=== PATIENT | female | born 1980 | race African-American/Black ===

== ENCOUNTER 2021-06-05 16:04 | Emergency (ER) | payer OTHER, SELFPAY ==
--- NOTE | ~2021-06-05 | XR_ITS ---
EXAMINATION: XR finger 4th LT min 2V INDICATION: Left fourth finger laceration TECHNIQUE: Three views of the left fourth finger are obtained. COMPARISON: None available FINDINGS: Bone alignment is normal. There is no fracture. No radiopaque foreign body is identified. T here is mild soft tissue swelling of the finger. IMPRESSION: 1. No acute osseous abnormality. Reviewed, dictated and finalized at location B.
[2021-06-05 16:26] VITALS: BP 124/66; PULSE 66; RESP 16; TEMP 36.8; O2SAT 100
--- NOTE | 2021-06-05 16:27 | ED.WOUNDLAC ---
HPI - Wound/Laceration General Chief Complaint: Wound/Laceration Stated Complaint: cut finger Time Seen by Provider: 06/05/21 16:27 Source: patient and family Mode of arrival: ambulatory Limitations: no limitations History of Present Illness HPI narrative: Patient is a 40-year-old female who presents for evaluation of puncture wound to left fourth digit pad. Patient states she was cutting meat with a knife when the knife slipped and punctured through her left fourth digit. Patient reports pain at the site as well as tingling. She reports difficulty with movement secondary to the pain. Patient was able to remove her rings from that finger. She is right-hand dominant. Related Data Allergies Allergy/AdvReac Type Severity Reaction Status Date / Time naproxen Allergy Mild HIVES, Verified 06/05/21 16:30 ITCHING latex Allergy Unknown Hives Verified 06/05/21 16:30 Wasp Allergy Unknown Difficulty Uncoded 06/05/21 16:30 Breathing Review of Systems Review of Systems: CONSTITUTIONAL: Denies fever CARDIOVASCULAR: Denies chest pain RESPIRATORY: Denies cough or dyspnea. GASTROINTESTINAL: Denies abdominal pain SKIN: Denies rash, reports small laceration to left fourth digit pad MUSCULOSKELETAL: Denies back pain NEUROLOGIC: Denies headache PMFSH Past Medical History Medical History Anxiety and depression COPD (chronic obstructive pulmonary disease) Tubal infertility in female Surgical History Surgical History Previous section Social History Social History Smoking status: Current every day smoker Exam Narrative: GENERAL: Awake, alert, conversant, tearful HEAD: Normocephalic, atraumatic. EYES: PERRLA and EOMI. ENT: Nares clear, no rhinorrhea or epistaxis. Mucous membranes moist. NECK: Supple. CHEST: No respiratory distress, breathing even and non labored HEART: Regular rate, sinus rhythm ABDOMEN:Non distended, non tender EXTREMITIES: Normal range of motion. No edema. SKIN: Warm, dry, no rash. Tender to palpation on the pad of the left fourth digit. There is ecchymosis there. No ungual hematoma. 0.25 cm superficial laceration, nongaping to the left fourth finger pad. Intact sensation median, ulnar, radial nerve distribution. Radial pulse 2+ NEURO:No focal deficits. Alert and oriented x3 Course Vital Signs Vital signs: Vital Signs Temperature 36.8 C 06/05/21 16:26 Pulse Rate 66 06/05/21 16:26 Respiratory Rate 16 06/05/21 16:26 Blood Pressure 124/66 06/05/21 16:26 Pulse Oximetry 100 06/05/21 16:26 Temperature 36.8 C 06/05/21 16:26 Pulse Rate 66 06/05/21 16:26 Respiratory Rate 16 06/05/21 16:26 Blood Pressure 124/66 06/05/21 16:26 Pulse Oximetry 100 06/05/21 16:26 Procedures Laceration Laceration 1: Date: 06/05/21 Time: 17:26 Site: hand Side (If applicable): left Size (cm): 0.25 Description: linear Depth: simple, single layer Local Anesthetic: none Pre-repair: wound explored and irrigated ====== Skin Level ====== Skin layer closed with: dermabond and steri strips ====== Subcutaneous Layer ====== ====== Muscle Layer ====== ====== Tendon Layer ====== MDM - Wound/Laceration MDM Narrative Medical decision making narrative: Patient presenting for evaluation of puncture wound to left fourth digit finger pad. She is neurovascularly intact. This is a very tiny puncture wound. Tetanus was updated. No acute osseous abnormality found on imaging. Dermabond and Steri-Strip applied. Patient was discharged home with wound care precautions. Differential Diagnosis Differential diagnosis: Likely laceration, abrasion and avulsion of skin Imaging Data Radiologist's impression: ITS Impressions Finger X-Ray 0
[2021-06-05] MEDS: oxyCODONE/ACETAMINOPHEN (*CRX) 5-325 MG TABLET 1 TABLET PO (17:01)
[2021-06-05 18:23] VITALS: BP 120/67; PULSE 68; RESP 18; O2SAT 100
== END 2021-06-05 17:50 | disposition home or self-care (01) ==
PROVIDERS: Emergency Provider Emergency Medicine
DX: S61.215A Laceration without foreign body of left ring finger without damage to nail, initial encounter (principal); J44.9 Chronic obstructive pulmonary disease, unspecified; F17.200 Nicotine dependence, unspecified, uncomplicated; W26.0XXA Contact with knife, initial encounter
CPT/HCPCS: 12001; 73140; 99283; A9270

== ENCOUNTER 2024-02-25 08:43 | Emergency (ER) | payer OTHER, SELFPAY ==
--- NOTE | ~2024-02-25 | XR_ITS ---
EXAMINATION: XR wrist RT min 3V DATE: 02/25/2024 09:13 INDICATION: Right wrist pain. Injury. TECHNIQUE: 4 views of right wrist were obtained. COMPARISON: None. FINDINGS: Bone alignment is normal. No fracture. Joint spaces are normal. IMPRESSION: 1. Normal right wrist. Reviewed, dictated and finalized at location A. IMPRESSION: 1. Normal right wrist.
--- NOTE | ~2024-02-25 | XR_ITS ---
Right elbow Technique: AP, oblique, and lateral views were obtained. Clinical History: Pain Findings: No acute fracture or dislocation is seen. Osseous alignment is anatomic. Joint spaces are p reserved. There is no displacement of the fat pads, and soft tissues are unremarkable. Impression: Unremarkable radiographs. Reviewed, dictated and finalized at location . Impression: Unremarkable radiographs.
--- NOTE | ~2024-02-25 | XR_ITS ---
EXAMINATION: XR foot LT min 3V DATE: 02/25/2024 09:13 INDICATION: Left foot injury and pain. TECHNIQUE: 4 views of left foot were obtained. COMPARISON: None. FINDINGS: There is moderate hallux valgus. No fracture. There is mild osteoarthritis of first metatar sophalangeal joint and talonavicular joint. IMPRESSION: 1. Moderate hallux valgus. Mild polyarticular osteoarthritis. Reviewed, dictated and finalized at location A.
--- NOTE | ~2024-02-25 | XR_ITS ---
EXAMINATION: XR shoulder RT min 2V DATE: 02/25/2024 09:12 INDICATION: Right shoulder pain. Fall. TECHNIQUE: 5 views of right shoulder were obtained. COMPARISON: None. FINDINGS: Bone alignment is normal. No fracture. Glenohumeral joint is normal. There is moderate acro mioclavicular joint osteoarthritis. IMPRESSION: 1. Moderate right acromioclavicular joint osteoarthritis. Reviewed, dictated and finalized at location A.
[2024-02-25 08:45] VITALS: BP 142/108; PULSE 114; RESP 16; TEMP 36.5; O2SAT 98
--- NOTE | 2024-02-25 09:31 | ED.UPPEXIN ---
HPI - Extremity Injury (Upper) General Chief Complaint: Extremity Injury, Upper Stated Complaint: R arm injury Time Seen by Provider: 02/25/24 09:09 Source: patient Mode of arrival: ambulatory Limitations: no limitations History of Present Illness HPI narrative: Patient is a 43-year-old who presents to the ED with report of a fall. Patient reports she was gardening this morning and tripped over her dog, falling onto her right side. She fell with her right arm up above her head and heard a pop in her right shoulder. She complains of pain to right shoulder, right wrist, left foot. Denies numbness or tingling. Denies head injury or LOC. She has not taken anything for pain. Related Data Allergies Allergy/AdvReac Type Severity Reaction Status Date / Time naproxen Allergy Mild HIVES, Verified 02/25/24 08:50 ITCHING latex Allergy Unknown Hives Verified 02/25/24 08:50 Wasp Allergy Unknown Difficulty Uncoded 02/25/24 08:50 Breathing Review of Systems Review of Systems: CONSTITUTIONAL: Denies fever, chills, or sweats. MUSCULOSKELETAL: See HPI. NEUROLOGIC: Denies headache, dizziness, numbness, or weakness. All systems reviewed & are unremarkable except as noted in HPI and below PMFSH Past Medical History Medical History Anxiety and depression COPD (chronic obstructive pulmonary disease) Tubal infertility in female Surgical History Surgical History Previous section Social History Social History Smoking status: Current every day smoker Exam Narrative: GENERAL: Well appearing, morbidly obese with BMI of 40.4, non-toxic, in no acute distress. HEAD: Normocephalic, atraumatic. RESPIRATORY: Airway patent, respirations nonlabored. CARDIOVASCULAR: Regular rate and rhythm without murmurs, rubs, or gallops. Peripheral pulses intact. MUSCULOSKELETAL: No gross deformities. Limited range of right upper extremity due to pain, tenderness to palpation throughout right anterior lateral full. Mild tenderness throughout distal humerus, no significant tenderness over medial or lateral epicondyle of elbow. Tenderness over distal radius with mild swelling noted. Sensation intact throughout RUE. Mild swelling noted to lateral malleoli of the left foot with focal tenderness, no significant tenderness over 5th metatarsal. Sensation intact throughout L foot/ankle. SKIN: Warm, dry, normal color. NEURO: A&O X3. Speech clear. Cranial nerves II-XII grossly intact. Steady gait. No ataxic movements. PSYCHIATRIC: Appropriate mood and affect. Normal interaction. Course Vital Signs Vital signs: Vital Signs Temperature 97.7 F 02/25/24 08:45 Pulse Rate 114 H 02/25/24 08:45 Respiratory Rate 16 02/25/24 08:45 Blood Pressure 142/108 H 02/25/24 08:45 Pulse Oximetry 98 02/25/24 08:45 Oxygen Delivery Room Air 02/25/24 08:45 Temperature 97.7 F 02/25/24 08:45 Pulse Rate 74 02/25/24 10:02 Respiratory Rate 20 02/25/24 10:02 Blood Pressure 135/68 02/25/24 10:02 Pulse Oximetry 97 02/25/24 10:02 Oxygen Delivery Room Air 02/25/24 08:45 MDM - Extremity Injury (Upper) MDM Narrative Medical decision making narrative: Patient presents to ED status post ground level fall. Neurovascularly intact. No gross deformities. Imaging unremarkable. Discussed likelihood of rotator cuff injury, patient placed in arm sling in the ED. Advised to continue Tylenol as needed for pain at home, rice therapy, ice to areas of pain. Will provide orthopedic information for follow-up if needed. Discussed return precautions. Discharged in stable condition. Medical Records Attestation: I reviewed the patient's medical records. Imaging Data Attestation: I personally reviewed and interpreted this imaging study as follows: Radiologist
[2024-02-25] MEDS: ACETAMINOPHEN 500 MG TABLET 1000 MG PO (09:48)
[2024-02-25 10:02] VITALS: BP 135/68; PULSE 74; RESP 20; O2SAT 97
== END 2024-02-25 10:19 | disposition home or self-care (01) ==
LOC: ANHED 09:43
PROVIDERS: Emergency Provider Physician Assistant
DX: S46.911A Strain of unspecified muscle, fascia and tendon at shoulder and upper arm level, right arm, initial encounter (principal); S66.911A Strain of unspecified muscle, fascia and tendon at wrist and hand level, right hand, initial encounter; J44.9 Chronic obstructive pulmonary disease, unspecified; F17.200 Nicotine dependence, unspecified, uncomplicated; M20.12 Hallux valgus (acquired), left foot; M19.072 Primary osteoarthritis, left ankle and foot; M19.011 Primary osteoarthritis, right shoulder; W01.0XXA Fall on same level from slipping, tripping and stumbling without subsequent striking against object, initial encounter
CPT/HCPCS: 73030; 73080; 73110; 73630; 99283; 99284; A4565; A9270

== ENCOUNTER 2025-04-01 11:32 | Emergency (ER) | payer OTHER, SELFPAY ==
--- NOTE | 2025-04-01 11:34 | ED.URI ---
HPI - URI/Sore Throat General Chief Complaint: Upper Respiratory Infection Stated Complaint: Sore Throat Time Seen by Provider: 04/01/25 11:52 Source: patient, RN notes reviewed and old records reviewed Mode of arrival: ambulatory Limitations: no limitations History of Present Illness HPI Narrative: 44-year-old female presents to the [facility] with 1 day history of sore throat, trouble swallowing, shortness of breath and chest pain. Patient is maintaining own secretions. Denies any fevers. Patient is stating that the lower neck is extremely painful. No lymphadenopathy. Reports that she did take Benadryl last night with no relief. Reports pain, swallowing, shortness of breath has gradually gotten worse since yesterday. Onset (ago): day(s) (1) Related Data Home Medications ?Medication ?Instructions ?Recorded ?Confirmed ?Last Taken ?Type albuterol sulfate 90 mcg/actuation inhalation 04/01/25 Unknown History aerosol inhaler tirzepatide (weight loss) 2.5 mg subcut 04/01/25 Unknown History mg/0.5 mL subcutaneous pen injector (Zepbound) tirzepatide (weight loss) 5 mg/0.5 mg subcut 04/01/25 Unknown History mL subcutaneous pen injector (Zepbound) venlafaxine 150 mg mg PO 04/01/25 Unknown History capsule,extended release 24 hr Allergies Allergy/AdvReac Type Severity Reaction Status Date / Time naproxen Allergy Mild HIVES, Verified 04/01/25 11:49 ITCHING latex Allergy Unknown Hives Verified 04/01/25 11:49 Wasp Allergy Unknown Difficulty Uncoded 04/01/25 11:49 Breathing Review of Systems Review of Systems: All systems reviewed & are unremarkable except as noted in HPI and below Constitutional: Constitutional: Reports as per HPI and Reports fatigue ENT: Reports as per HPI and Reports sore throat Cardiovascular: Cardiovascular: Reports as per HPI, Reports chest pain and Reports dyspnea Respiratory: Respiratory: Reports as per HPI, Reports no additional respiratory complaints, Denies chest congestion, Denies cough and Reports dyspnea Gastrointestinal: Gastrointestinal: Reports as per HPI and Reports nausea Musculoskeletal: Musculoskeletal: Reports no additional musculoskeletal complaints Integumentary/Breasts: Skin/Breast: Reports system reviewed and no additional complaints, except as docu [facility] Past Medical History Medical History COPD (chronic obstructive pulmonary disease) Anxiety and depression Tubal infertility in female Surgical History Surgical History Previous section Social History Social History Smoking status: Current every day smoker Comments At the time of my signature, I reviewed and agree with the nursing past medical, surgical, social, and family history. There is no relevant family history pertinent to the patient complaint. Exam Const: General: cooperative, well developed, alert, anxious, uncomfortable, well groomed and well nourished Nutritional Appearance: well nourished Orientation/consciousness: patient oriented x3 Limitations: no limitations HENMT: Head: normal to inspection Ears: hearing grossly normal bilaterally, external ears normal, TM's normal bilaterally, EAC's normal, mastoids normal and no periauricular adenopathy Mouth: Yes Normal oral and palatal mucosa present, Yes lip normal, Yes tongue normal and Yes moist mucous membranes Throat: posterior oropharynx normal, uvula midline and no uvular edema Eyes: General: appearance normal, both eyes and all related structures Alignment and Position: alignment normal Neck: Neck: normal visual inspection, full ROM, no lymphadenopathy and no meningeal signs Chest: Chest palpation & inspection: normal inspection of the chest Resp: Effort & Inspection: normal respiratory effort and able to speak in complete sentences Auscultation: clear to auscultation bilaterally, no crackles, no rales, no rhonchi and no wheezes Cardio: Rate: regular rate GI: GI Palp: No abdominal tenderness Skin: General skin exam: normal color and no rashes or lesions noted Neuro: General: patient oriented x3, gait normal, moves all extremities and no meningeal signs Cognition (Neuro): normal cognition Speech: normal speech Gait exam (Neuro): Normal gait present Extrem: General: normal to inspection, full ROM, capillary refill normal and normal gait Psych: Appearance: grossly normal and well kempt Mental Status: mental status grossly normal Speech and movement: Normal speech and movement present and Clear speech present Affect: normal affect Attitude: cooperative Course Course Level of Care: Express Care Visit Vital Signs Vital signs: Vital Signs Temperature 96.7 F L 04/01/25 11:46 Pulse Rate 89 04/01/25 11:46 Respiratory Rate 24 H 04/01/25 11:46 Blood Pressure 92/47 L 04/01/25 11:46 Pulse Oximetry 100 04/01/25 11:46 Oxygen Delivery Room Air 04/01/25 11:46 Temperature 96.7 F L 04/01/25 11:46 Pulse Rate 88 04/01/25 12:00 Respiratory Rate 20 04/01/25 12:00 Blood Pressure 92/47 L 04/01/25 11:46 Pulse Oximetry 100 04/01/25 12:00 Oxygen Delivery Room Air 04/01/25 12:00 Reviewed Transfer Transfered to: [facility] (Per patient request) Transportation: Other (Declined EMS) Transfer rationale: Patient with significant throat pain, negative strep, negative COVID, negative flu sending for higher level care rule out epiglottitis, cardiac issues. EKG was normal sinus rhythm. Accepting physician: Spoke with Khushboo CARBONE, MDM - URI/Sore Throat MDM Narrative Medical decision making narrative: Patient sitting in exam room. Patient is complaining of base of neck severe pain, trouble swallowing, shortness of breath, neck pain, chest pain. Patient flu, COVID, strep are negative, normal EKG. Transferring for higher level care rule out cardiac, epiglottitis, PE Differential Diagnosis Differential diagnosis: Likely upper respiratory infection, otitis media, sinusitis, viral infection, bronchitis, influenza, pharyngitis and other (Epiglottitis, cardiac event) Lab Data Labs: Lab Results 04/01/25 Range/Units 11:42 POC Influenza A Ag Negative (Negative) POC Influenza B Ag Negative (Negative) POC SARS CoV-2 Ag Negative (Negative) POC Grp A Strep Screen Negative (Negative) Reviewed ECG Data EKG #1: Attestation: I personally reviewed and interpreted this ECG as follows: ECG completion date: 04/01/25 ECG completion time: 12:06 Prior ECG tracings: not available for review Interpretation: Sinus rhythm, 74, CO interval 184, QRS 106 Critical Care Time Critical Care Time Critical Care Time: No Discharge Plan Discharge Clinical Impression: Pharyngitis, Chest pain, Shortness of breath Patient Disposition: Acute Care Hospital Condition: Stable Patient Language: [place] Prescriptions: No Action venlafaxine 150 mg capsule,extended release 24hr PO albuterol sulfate 90 mcg/actuation HFA aerosol inhaler INHALATION Zepbound 2.5 mg/0.5 mL pen injector SUBCUT Zepbound 5 mg/0.5 mL pen injector SUBCUT Follow-up/Referrals: UNKNOWN,DOCTOR [Non-Staff] -
[2025-04-01 11:46] VITALS: BP 92/47; PULSE 89; RESP 24; TEMP 35.9; O2SAT 100
[2025-04-01 12:00] VITALS: PULSE 88; RESP 20; O2SAT 100
--- NOTE | 2025-04-01 12:05 | ECG_ITS ---
Test Date: 2025-04-01 12:06:30 Measurements Intervals [place] Rate: 74 P: 60 RI: 182 QRS: 26 QRSD: 106 T: 36 QT: 391 QTc: 436 Interpretive Statements SINUS RHYTHM INCOMPLETE RIGHT BUNDLE BRANCH BLOCK BASELINE ARTIFACT- I, III, AVR, AVL BORDERLINE ECG No previous ECG available for comparison Electronically Signed On 04-01-2025 12:22:47 CDT by Ascencion Barrios D.O.
[2025-04-01 12:09] LABS: EDCOVIDSCREEN Negative (Negative); EDINFLUASCREEN Negative (Negative); EDINFLUBSCREEN Negative (Negative)
[2025-04-01 12:10] LABS: EDSTREPNEGPOS1 Negative (Negative)
== END 2025-04-01 12:00 | disposition short-term general hospital (02) ==
PROVIDERS: Emergency Provider Nurse Practitioner
DX: J02.9 Acute pharyngitis, unspecified (principal); R07.9 Chest pain, unspecified; R06.02 Shortness of breath; Z20.822 Contact with and (suspected) exposure to COVID-19; J44.9 Chronic obstructive pulmonary disease, unspecified; F17.290 Nicotine dependence, other tobacco product, uncomplicated
CPT/HCPCS: 87081; 87426; 87804; 87880; 93005; 99213; G0463